=== PATIENT | male | born 1995 | race Caucasian/White ===

== ENCOUNTER 2019-12-21 08:22 | Day surgery (SDC) | payer BC ==
[~2019-12-21] VITALS: Ht 165.1 cm; Wt 58.5 kg
[~2019-12-21 08:22] MED LIST: CLONIDINE HCL0.1 MG PO; LEXAPRO20 MG PO; PRILOSEC OTC20 MG PO
[2019-12-21] MEDS ORDERED: ACETAMINOPHEN325 M1 PO (08:41)
--- NOTE | 2019-12-21 10:02 | NUR ---
12/21/19 1002 Meg Arora 0957 PATIENT ARRIVES TO PACU SLEEPING. DOES NOT OPEN EYES WITH VERBAL STIMULI. RESP EVEN AND UNLABORED, NC AT 3L. 1000 PATIENT SLEEPING, DOES NOT OPEN EYES WITH VERBAL STIMULI. IS MOVING ARMS AND ITCHING NOSE. RESP EVEN AND UNLABORED, NC CONTINUED AT 3 LITERS.
--- NOTE | 2019-12-22 07:58 | OR ---
[facility] [address] [place], [place] [address] Signed DATE OF OPERATION: 12/21/2019 SURGEON: Elizabeth Martins MD PREOPERATIVE DIAGNOSES: 1. Chronic periumbilical abdominal pain. 2. Esophageal dysphagia. 3. Diarrhea. 4. Anorexia. POSTOPERATIVE DIAGNOSES: 1. Mild diffuse gastroduodenitis. 2. Possible small pyloric bulb ulcer. 3. A onqcc-ce-ialmeofg sized hiatal hernia. 4. Retained food in the antrum and fundus of stomach concerning for gastroparesis. 5. Possible gastric outlet obstruction (36-Amharic). ESTIMATED BLOOD LOSS: None. PROCEDURE: Esophagogastroduodenoscopy with CLOtest and biopsies of the pyloric bulb and antrum. ESTIMATED BLOOD LOSS: None. 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 He has had to have reconstruction of his face including the TMJ on the left. He is able to open his mouth for the bite block, but not much further. He also had to have his heart operated on when he was younger. He said sustained activities in gym class used to bother him some, but not shorter activities. 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 However, he feels that his stomach issues have worsened, so he is currently unemployed. I actually saw him five years ago with similar complaints. He seems to have a very deep periumbilical sensation of pain. He said it is often at night. It often after meals. But not always. He can happen during bowel movements. He had been working with his primary care provider. The ultrasound showed a very contracted somewhat cystic appearing gallbladder. It was difficult to follow the gallbladder over to the common bile duct; however, the common bile duct itself was 2.6 Electronically Signed By: ELIZABETH MARTINS MD 12/22/19 0758 PATIENT NAME: KLAUS TRUJILLO OPERATIVE REPORT DATE OF : [birth year] REPORT #: [id number] PHYSICIAN: ELIZABETH MARTINS MD PCP: NICOLAS REYEZ MD REPORT IS CONFIDENTIAL AND NOT TO BE RELEASED WITHOUT AUTHORIZATION [facility] [address] [place] [address] Signed mm in diameter. Therefore, a followup CT scan was performed and he appears to have a very contracted gallbladder. He then underwent a HIDA scan and again the most likely has a very contracted gallbladder. However, the gallbladder ejection fraction was good at 83%. Injection of the CCK seemed to reproduce his symptoms. He presents today for his upper endoscopy. In the office, we reviewed upper endoscopy in detail along with its risks including, but not limited to gas bloating, crampy abdominal pain, bleeding, perforation requiring surgery, and missed diagnosis. He understands the need for IV conscious sedation. He has done well with Versed and fentanyl in the past. He expressed understanding and wished to proceed. DESCRIPTION OF PROCEDURE: Klaus was taken into our endoscopy suite and placed in the supine semi-recumbent position. He was given preoperative Ancef, which made him nauseated. Consequently, we gave him 8 mg of Zofran IV. After that, he seemed to be fine. His posterior oropharynx was anesthetized with lidocaine spray. A bite block was utilized for the case. He is able to open his mouth wide enough to get the bite block and it does not appear he can open it much further. We gave him 100 mg of Versed and 100 mcg fentanyl, 7 mg of Versed. Even then he was a bit awaken uncooperative during the test. Nevertheless, we were able to pass the scope down into the esophagus and into the stomach. He had food in the fundus and in the antrum of the stomach. It raises a concern for gastroparesis. It took a few minutes to find the opening from the antrum into the pylorus. Adult gastroscope just fit through there with a little bit of tension, and I suspect he has a small amount of gastric outlet obstruction. In the duodenal bulb, he had a little irritation and at one point it appeared that he might have just a tiny ulcer. The scope went out into the duodenum proper and it was unremarkable. The scope was then withdrawn back and we took a biopsy of the pyloric bulb as well as the antrum for pathologic review. We took an additional biopsy of the antrum for CLOtest. Upon retroflexion of scope, we could see during his respiratory cycles and he has a ygysn-re-bcxqqzhn sized hiatal hernia. The scope was withdrawn up to the area of the GE junction, which was compliant without stricture. There was no Renner's mucosa. No distal esophagitis. The middle and upper esophagus were unremarkable. After this, the gas been suctioned out and the gastroscope removed. Klaus tolerated the procedure quite well. RECOMMENDATIONS: I will see Klaus back in my office in 7 to 14 days to review his results. His last echocardiogram was in 2011. We have been unable to print that currently. Also, he has limited range of motion of his mandible given reconstruction of his left face. In the end, he may need his gallbladder out; however, he probably should at least have a solid phase gastric emptying scan to evaluate his stomach, and possibly simple upper GI small-bowel follow-through as well. Electronically Signed By: ELIZABETH MARTINS MD 12/22/19 0758 PATIENT NAME: KLAUS TRUJILLO OPERATIVE REPORT DATE OF : [birth year] REPORT #: [id number] PHYSICIAN: ELIZABETH MARTINS MD PCP: NICOLAS REYEZ MD REPORT IS CONFIDENTIAL AND NOT TO BE RELEASED WITHOUT AUTHORIZATION [address] [place] [address], [place] [address] Signed Elizabeth Martins MD ALB/MODL /[id number] cc: DO Nicolas Randall MD Andrew L Bower, MD Copies: KENIA FRAZIER RUSSELL BARR MD BOWER, ANDREW L MD ~ Electronically Signed By: ELIZABETH MARTINS MD 12/22/19 0758 PATIENT NAME: KLAUS TRUJILLO OPERATIVE REPORT DATE OF : [birth year] REPORT #: [id number] PHYSICIAN: ELIZABETH MARTINS MD PCP: NICOLAS REYEZ MD REPORT IS CONFIDENTIAL AND NOT TO BE RELEASED WITHOUT AUTHORIZATION
--- NOTE | 2019-12-25 16:51 | PATH ---
[facility] [address] [place], [place] [address] Signed SPECIMEN(S): A DUODENUM BULB SPECIMEN(S): B ANTRUM/PYLORUS SPECIMEN SOURCE: A. DUODENUM BULB B. ANTRUM/PYLORUS CLINICAL HISTORY: Abdominal pain, weight loss. EGD. MICROSCOPIC DESCRIPTION: Histologic sections of all submitted blocks are examined by light microscopy. These findings, together with the gross examination, support the pathologic diagnosis. FINAL PATHOLOGIC DIAGNOSIS: A. Duodenum, bulb, biopsy: - Duodenal mucosa with reactive changes and Prieto's gland hyperplasia, suggestive of peptic duodenitis. - Negative for Helicobacter organisms. - Negative for dysplasia or malignancy. B. Stomach, antrum/pylorus, biopsy: - Antral mucosa with reactive gastropathy. - Negative for Helicobacter organisms. - Negative for dysplasia or malignancy. COMMENT: Immunohistochemical stains for H. pylori (with appropriately staining controls) were performed on both specimens A and B and are negative for Helicobacter organisms. NAL:cml:C2NR GROSS DESCRIPTION: Two specimens are received in two containers, labeled "KA." A. The specimen, labeled "KA, duodenum bulb biopsy," is received in formalin and consists of one rubio soft tissue fragment that measures 0.2 cm in greatest dimension. The specimen is entirely submitted in cassette (A1). B. The specimen, labeled "KA, antrum biopsy," is received in formalin and consists of one rubio soft tissue fragment that measures 0.2 cm in greatest dimension. The specimen is entirely submitted in cassette (B1). PATIENT NAME: KLAUS TRUJILLO PATHOLOGY DATE OF : [birth year] REPORT #: [id number] PHYSICIAN: ROSEANNE SHERWOOD PCP: NICOLAS REYEZ MD REPORT IS CONFIDENTIAL AND NOT TO BE RELEASED WITHOUT AUTHORIZATION [facility] [address] [place], [place] [address] Signed JS (under the direct supervision of a pathologist) The Gross Description was prepared using a voice recognition system. The report was reviewed for accuracy; however, sound-alike word errors, addition and/or deletions may occur. If there is any question about this report, please contact Client Services. ADDITIONAL NOTES: Immunohistochemical and/or in situ hybridization studies were performed on this case with the appropriate positive controls that react as expected. This test was developed and its performance characteristics determined by [facility]. It has not been cleared or approved by the U.S. Food and Drug Administration. The FDA has determined that such clearance or approval is not necessary. This test is used for clinical purposes. It should not be regarded as investigational or for research. [facility] is certified under the Clinical Laboratory Improvement Amendments of 1988 (CLIA) as qualified to perform high complexity clinical laboratory testing. PERFORMING LABORATORY: The technical component was performed by [facility], [address] [place] [id number] (Benefits Sales Consultant: Aziza Mai MD; CLIA# [id number]). [facility], [address] [address] (CLIA# [id number]). Diagnostician: Dilma Sky MD Pathologist Electronically Signed 12/25/2019 Copies: ~ PATIENT NAME: KLAUS TRUJILLO PATHOLOGY DATE OF : [birth year] REPORT #: [id number] PHYSICIAN: ROSEANNE PATHOLOGY PCP: NICOLAS REYEZ MD REPORT IS CONFIDENTIAL AND NOT TO BE RELEASED WITHOUT AUTHORIZATION
== END 2019-12-21 10:55 | disposition home or self-care (01) ==
LOC: OPS 08:22 → DS 08:22 → OPS 09:45
PROVIDERS: Colon & Rectal Surgery
PROC: 0DB78ZX Excision of Stomach, Pylorus, Via Natural or Artificial Opening Endoscopic, Diagnostic (ICD-10-PCS; 2019-12-21)
PROC: 0DB98ZX Excision of Duodenum, Via Natural or Artificial Opening Endoscopic, Diagnostic (ICD-10-PCS; principal; 2019-12-21 09:45)
DX: K31.9 Disease of stomach and duodenum, unspecified (principal); K44.9 Diaphragmatic hernia without obstruction or gangrene; G47.00 Insomnia, unspecified; F32.9 Major depressive disorder, single episode, unspecified; F41.9 Anxiety disorder, unspecified; Z79.899 Other long term (current) drug therapy; Z87.891 Personal history of nicotine dependence; Z88.8 Allergy status to other drugs, medicaments and biological substances
CPT/HCPCS: 86677; 99153; G0500; J0690; J2250; J2405; J3010; J7121

== ENCOUNTER 2020-01-25 08:14 | Emergency (ER) | payer BC ==
[~2020-01-25] VITALS: Ht 165.1 cm; Wt 58.5 kg
--- OUTSIDE RECORDS SUMMARY | ~2020-01-25 | XMS | Clinical Summary ---
Demographics + + + | Address | [address] | | | [place] [address] | + + + | Home Phone | | + + + | Preferred Language | Unknown | + + + | Marital Status | Single | + + + | Jainism Affiliation | Unknown | + + + | Race | White | + + + | Ethnic Group | Not or | + + + Author + + + | Author | NON REVENUE LOCATIONS | + + + | Organization | NON REVENUE LOCATIONS | + + + | Address | Unknown | + + + | Phone | Unavailable | + + + Support + + + + + | Name | Relationship | Address | Phone | + + + + + | Shreya Vega | ECON | [address] | | | | | [place] | | | | | [address] | | + + + + + Care Team Providers + +------+ + | Care Bulk Tank Car Unloader Name | Role | Phone | + +------+ + PCP | Unavailable | + +------+ + Source Comments OLEG is fully live on both [facility] Ambulatory and [facility] InPatient.[facility] Allergies No Known Allergies Medications Not on file Active Problems Not on file Social History + +-------+ +--------+------+ | Tobacco Use | Types | Packs/Day | Years | Date | | | | | Used | | + +-------+ +--------+------+ | Never Assessed | | | | | + +-------+ +--------+------+ + + + | Sex Assigned at | Date Recorded | | | | + + + | Not on file | | + + + Last Filed Vital Signs Not on file Plan of Treatment + + +-------+ + | Health Maintenance | Due Date | Last | Comments | | | | Done | | + + +-------+ + | Influenza (Flu) | | | | | vaccination (#1) | 0 | | | + + +-------+ + | Pneumococcal | Aged Out | | No longer eligible based on patient's age | | vaccination | | | to complete this topic | + + +-------+ + Results Not on filefrom Last 3 Months Insurance + +--------+ +--------+ + +------+ | Payer | Benefi | Subscriber | Effect | Phone | Address | Type | | | t Plan | ID | luiz | | | | | | / | | Dates | | | | | | Group | | | | | | + +--------+ +--------+ + +------+ | [employer] | MODA | [id number] | | [phone] | [address] | PPO | | | [employer] | | [id number] | [id number] | | | | [place] | | esent | | [place], | | | | [place] | | | | [place] [address] | | + +--------+ +--------+ + +------+ + +--------+ +--------+ + + | Guarantor Name | Accoun | Relation to | Date | Phone | Billing Address | | | t Type | Patient | of | | | | | | | | | | + +--------+ +--------+ + + | SHREYA VEGA | Person | Parent | [birth year] | [address] | | | al/Hieu | | 1963 | [phone] | [place] [address] | | | vinay | | | 9 (Home) | | + +--------+ +--------+ + +"
--- OUTSIDE RECORDS SUMMARY | ~2020-01-25 | XMS | Encounter Summary ---
Demographics + + + | Address | [address] | | | [place] [address] | + + + | Home Phone | | + + + | Preferred Language | Unknown | + + + | Marital Status | Single | + + + | Church Affiliation | Unknown | + + + | Race | White | + + + | Ethnic Group | Not or | + + + Author + + + | Author | [facility] | + + + | Organization | [facility] | + + + | Address | Unknown | + + + | Phone | Unavailable | + + + Support + + + + + | Name | Relationship | Address | Phone | + + + + + | Shreya Stewart | ECON | [address] | | | | | [place] | | | | | [address] | | + + + + + Care Team Providers + +------+ + | Care Production Line Welder Name | Role | Phone | + +------+ + | Marie Khan MD | PCP | | + +------+ + Reason for Visit Diagnostic Testing (Routine) +--------+--------+ + + + + | Status | Reason | Specialty | Diagnoses / | Referred By | Referred To | | | | | Procedures | Contact | Contact | +--------+--------+ + + + + | Closed | | Radiology | Diagnoses | [place], | [facility] | | | | | Ventricular | Booker Hannah DO | [address] | | | | | septal | [address] | | | | | defect | [place] | [address] | | | | | Procedures | [address] | Research | | | | | MR CARDIAC | [place], [place] | [place] | | | | | COMPREHENSIV | [address] | [place], [place] | | | | | [address] | Phone: | [phone] | | | | | CONTRAST | [phone] | Phone: | | | | | | Fax: | [phone] | | | | | | [phone] | Fax: | | | | | | | [phone] | +--------+--------+ + + + + Encounter Details +--------+ + + + + | Date | Type | Department | Care Team | Description | +--------+ + + + + | 09/02/ | Hospital | Diagnostic Imaging | | | | 2011 | Encounter | Services at [facility] | | | | | | [address] | | | | | | Trish Rojas | | | | | | [facility] | | | | | | [place], [place] | | | | | | [address] | | | | | | [phone] | | | +--------+ + + + + Social History + +-------+ +--------+------+ | Tobacco [...] on file | | + + + documented as of this encounter Procedure Renaldo Winslow - 03/18/2012 1:55 PM PSTAssociated Order(s): ORDERS OTHERElectronically sig kiko by Faculty Other at 03/18/2012 1:55 PM PSTdocumented in this encounter Miscellaneous Notes Scan - Luca Faculty - 09/29/2011 11:35 AM PDTElectronically signed by Faculty Other at 11:35 AM PDTScan - Luca Faculty - 09/19/2011 10:54 AM PDT valuation - Mariah Madrid MD - 09/03/2011 12:16 PM PDTAnthony has a 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 The prostheti c component was not brought to [facility] today. A titanium (non-ferromagnetic) appliance is seen on the left side of the patient's head, used as a clip type attachment for the prosthesis. The titanium component is not removable and per the website for the sales representative facility services of the vis tafix implant and their online recommendation is that any magnetic or mangabutment or magnac ap components be removed prior to MR. This patient's prosthesis does not contain these comp onents so we will proceed with the CMR. [email or web address] I spoke with Keesha at Dr. Heladio Son's office regarding the confirming presence of only t he titanium component as well. documented in this en counter Plan of Treatment Not on filedocumented as of this encounter Procedures + +--------+ + + + | Procedure Name | Priori | Date/Time | Associated Diagnosis | Comments | | | ty | | | | + +--------+ + + + | ORDERS OTHER | | 09/03/2011 | | Results for this | | | | 12:00 AM | | procedure are in the | | | | PDT | | results section. | + +--------+ + + + documented in this encounter Results ORDERS OTHER (09/03/2011 12:00 AM PDT) + + + | Narrative | Performed At | + + + | | | | | | + + + + + | Procedure Note | + + | Renaldo Segovia - 03/18/2012 1:55 PM PST | + + documented in this encounter Visit Diagnoses + + | Diagnosis | + + | Ventricular septal defect | + + documented in this encounter"
--- OUTSIDE RECORDS SUMMARY | ~2020-01-25 | XMS | Encounter Summary ---
Demographics + + + | Address | [address] | | | [place] [address] | + + + | Home Phone | | + + + | Preferred Language | Unknown | + + + | Marital Status | Single | + + + | Synagogue Affiliation | Unknown | + + + | Race | White | + + + | Ethnic Group | Not or | + + + Author + + + | Author | [facility] | + + + | Organization | [facility] | + + + | Address | Unknown | + + + | Phone | Unavailable | + + + Support + + + + + | Name | Relationship | Address | Phone | + + + + + | Shreya Stewart | ECON | [address] | | | | | [place] | | | | | [address] | | + + + + + Care Team Providers + +------+ + | Care Explosive Ordnance Disposal Specialist Name | Role | Phone | + +------+ + | Marie Khan MD | PCP | | + +------+ + Reason for Referral Diagnostic Testing (Routine) +--------+--------+ + + + [...] | | | | MR CARDIAC | [place], [place] | [place] | | | | | COMPREHENSIV | [id number] | [place], [place] | | | | | E W/O | Phone: | [phone] | | | | | CONTRAST | [phone] | Phone: | | | | | | Fax: | [phone] | | | | | | [phone] | Fax: | | | | | | | [phone] | +--------+--------+ + + + + Encounter Details +--------+ + + + + | Date | Type | Department | Care Team | Description | +--------+ + + + + | 08/16/ | Outside | Diagnostic Imaging | Booker Troncoso DO | | | 2011 | Referral | Services at [facility] | [address] | | | | Order | [address] | [facility] [place] | | | | | Trish Rojas | [address] | | | | | [facility] | [phone] | | | | | [place], [place] | | | | | | [address] | | | | | | [phone] | | | +--------+ + + + [...] + + documented as of this encounter Plan of Treatment Not on filedocumented as of this encounter Procedures + +--------+ + + + | Procedure Name | Priori | Date/Time | Associated Diagnosis | Comments | | | ty | | | | + +--------+ + + + | MR CARDIAC COMPRE + | Routin | 09/03/2011 | | Results for this | | VELOCITY FLOW W/O | e | 2:22 PM | | procedure are in the | | CONTRAST | | PDT | | results section. | + +--------+ + + + | MRA CHEST W CONTRAST | Routin | 09/03/2011 | | Results for this | | | e | 2:22 PM | | procedure are in the | | | | PDT | | results section. 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 Small | | | | | | membranous VSD.Right | | | | | | aortic arch with | | | | | | suspected vascular ring. | | | | | | WEIGHT: 51.256 | | | | | | kgHEIGHT: 134.62 cmBSA: | | | | | | 1.34HEART RATE: 79 bpm | | | | | | CARDIAC | | | | | | MORPHOLOGY:Normal | | | | | | atrioventricular and | | | | | | ventriculoarterial | | | | | | anatomicalrelationships. | | | | | | The cardiac apex, | | | | | | gastric lumen, and | | | | | | spleen are onthe left | | | | | | and the liver is on the | | | | | | right. MR | | | | | | ANGIOGRAPHY:The aortic | | | | | | arch is on the right. 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 The left | | | | | | subclavian arteryfollows | | | | | | a retro-esophageal | | | | | | course and is in close | | | | | | proximity to theproximal | | | | | | left common carotid | | | | | | artery (7 mm) in the | | | | | | superiormediastinum. 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 Coronary | | | | | | artery origins are | | | | | | normal. LV:Normal LV | | | | | | size and systolic | | | | | | function.Normal LV wall | | | | | | motion.A subaortic | | | | | | membrane arises from the | | | | | | septum 20 mm below the | | | | | | aorticvalve, resulting | | | | | | in blood flow | | | | | | disturbance. RV:Normal | | | | | | RV size and systolic | | | | | | function. Moderate RV | | | | | | hypertrophy isseen.A | | | | | | flow jet, indicating | | | | | | accelerated flow | | | | | | velocity due to | | | | | | narrowing ofthe RVOT is | | | | | | seen 25 mm below the | | | | | | pulmonic valve. Cine | | | | | | sequences, with | | | | | | saturation bands applied | | | | | | to accentuate | | | | | | potentialflow findings | | | | | | of a VSD were performed. | | | | | | A VSD is not | | | | | | visualized andthere is | | | | | | equal stroke volume in | | | | | | the right and left | | | | | | ventricles.Echocardiogra | | | | | | phy is sensitive for | | | | | | detection of small VSDs. | | | | | | ATRIA:The right atrial | | | | | | appendage is markedly | | | | | | enlarged.Normal left | | | | | | atrial size.The atrial | | | | | | septum is intact. AORTA | | | | | | & PAs:Normal; no branch | | | | | | PA stenosis.VEINS:There | | | | | | are bilateral SVCs, | | | | | | without a bridging vein. | | | | | | The IVC and PVsare | | | | | | normal. CARDIAC | | | | | | FUNCTION:LVEDV: 90 mL | | | | | | 67 | | | | | | mL/u2KQICM: 34 mL | | | | | | 25 mL/m2LVSV: 56 | | | | | | mL 42 | | | | | | mL/m2LV mass: 70 g | | | | | | 52 g/m2LVEF: | | | | | | 62% RVEDV: 96 mL | | | | | | 72 mL/w9YNNRD: | | | | | | 43 mL 32 | | | | | | mL/m2RVSV: 53 mL | | | | | | 40mL/m2RVEF: | | | | | | 56% VALVES:The aortic, | | | | | | pulmonic, mitral, and | | | | | | tricuspid valves are | | | | | | competent.A subaortic | | | | | | membrane is visualized | | | | | | 20 mm below the aortic | | | | | | valve.Subpulmonic | | | | | | stenosis is seen 30 mm | | | | | | below the pulmonic | | | | | | valve. | | | | | | PERICARDIUM:Normal; no | | | | | | pericardial effusion. Q | | | | | | FLOW:AORTIC BLOOD FLOW | | | | | | (mL): 47PULMONIC BLOOD | | | | | | FLOW (mL): 52Qp/Qs | | | | | | ratio: 1.1 THORAX & | | | | | | UPPER | | | | | | ABDOMEN:Mediastinal | | | | | | structures and upper | | | | | | abdominal viscera are | | | | | | normal. 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 | | | | | | Attending Radiologists: | | | | | | Mariah Madrid, | | | | | | EjAuthor: Mariah Ordonez | | | | | | Ej Madrid I have | | | | | | personally viewed this | | | | | | procedure/exam, reviewed | | | | | | this report,and made | | | | | | changes to it where | | | | | | appropriate. | | | | | | Final/Electronically | | | | | | signed / Mariah Ordonez | | | | | | Julius 09/04/2011 16:22 | | | | | | PM Result modified / | | | | | | Mariah Madrid | | | | | | 09/03/2011 18:27 PM | | | | | | Preliminary / | | | | | | Mariah Madrid | | | | | | 09/03/2011 17:22 PM | | | | + + + + + + + + | Specimen | + + | | + + + +---------+ + + | Performing | Address | City/State/Zipcode | Phone Number | | Organization | | | | + +---------+ + + | [facility] OF | | | | | RADIOLOGY | | | | + +---------+ + + MR CARDIAC COMPRE + VELOCITY FLOW W/O CONTRAST (09/03/2011 2:22 PM PDT) + + + + + + | Component | Value | Ref Range | Performed | Pathologist | | | | | At | Signature | + + + + + + | MR CARDIAC | CARDIAC MR COMPREHENSIVE | | | | | COMPRE + | - MORPHOLOGY & | | | | | VELOCITY | FUNCTIONQ FLOW OF THE | | | | | FLOW W/O | AORTA & PULMONARY | | | | | CONTRAST | [id number] MR ANGIOGRAPHY | | | | | | - IV Gd CLINICAL | | | | | | DATA:RVOT and LVOT | | | | | | obstruction, double | | | | | | chamber RV. Small | | | | | | membranous VSD.Right | | | | | | aortic arch with | | | | | | suspected vascular ring. | | | | | | WEIGHT: 51.256 | | | | | | kgHEIGHT: 134.62 cmBSA: | | | | | | 1.34HEART RATE: 79 bpm | | | | | | CARDIAC | | | | | | MORPHOLOGY:Normal | | | | | | atrioventricular and | | | | | | ventriculoarterial | | | | | | anatomicalrelationships. | | | | | | The cardiac apex, | | | | | | gastric lumen, and | | | | | | spleen are onthe left | | | | | | and the liver is on the | | | | | | right. MR | | | | | | ANGIOGRAPHY:The aortic | | | | | | arch is on the right. 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 The left | | | | | | subclavian arteryfollows | | | | | | a retro-esophageal | | | | | | course and is in close | | | | | | proximity to theproximal | | | | | | left common carotid | | | | | | artery (7 mm) in the | | | | | | superiormediastinum. 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 Coronary | | | | | | artery origins are | | | | | | normal. LV:Normal LV | | | | | | size and systolic | | | | | | function.Normal LV wall | | | | | | motion.A subaortic | | | | | | membrane arises from the | | | | | | septum 20 mm below the | | | | | | aorticvalve, resulting | | | | | | in blood flow | | | | | | disturbance. RV:Normal | | | | | | RV size and systolic | | | | | | function. Moderate RV | | | | | | hypertrophy isseen.A | | | | | | flow jet, indicating | | | | | | accelerated flow | | | | | | velocity due to | | | | | | narrowing ofthe RVOT is | | | | | | seen 25 mm below the | | | | | | pulmonic valve. Cine | | | | | | sequences, with | | | | | | saturation bands applied | | | | | | to accentuate | | | | | | potentialflow findings | | | | | | of a VSD were performed. | | | | | | A VSD is not | | | | | | visualized andthere is | | | | | | equal stroke volume in | | | | | | the right and left | | | | | | ventricles.Echocardiogra | | | | | | phy is sensitive for | | | | | | detection of small VSDs. | | | | | | ATRIA:The right atrial | | | | | | appendage is markedly | | | | | | enlarged.Normal left | | | | | | atrial size.The atrial | | | | | | septum is intact. AORTA | | | | | | & PAs:Normal; no branch | | | | | | PA stenosis.VEINS:There | | | | | | are bilateral SVCs, | | | | | | without a bridging vein. | | | | | | The IVC and PVsare | | | | | | normal. CARDIAC | | | | | | FUNCTION:LVEDV: 90 mL | | | | | | 67 | | | | | | mL/s5HFUGC: 34 mL | | | | | | 25 mL/m2LVSV: 56 | | | | | | mL 42 | | | | | | mL/m2LV mass: 70 g | | | | | | 52 g/m2LVEF: | | | | | | 62% RVEDV: 96 mL | | | | | | 72 mL/c8FNYRM: | | | | | | 43 mL 32 | | | | | | mL/m2RVSV: 53 mL | | | | | | 40mL/m2RVEF: | | | | | | 56% VALVES:The aortic, | | | | | | pulmonic, mitral, and | | | | | | tricuspid valves are | | | | | | competent.A subaortic | | | | | | membrane is visualized | | | | | | 20 mm below the aortic | | | | | | valve.Subpulmonic | | | | | | stenosis is seen 30 mm | | | | | | below the pulmonic | | | | | | valve. | | | | | | PERICARDIUM:Normal; no | | | | | | pericardial effusion. Q | | | | | | FLOW:AORTIC BLOOD FLOW | | | | | | (mL): 47PULMONIC BLOOD | | | | | | FLOW (mL): 52Qp/Qs | | | | | | ratio: 1.1 THORAX & | | | | | | UPPER | | | | | | ABDOMEN:Mediastinal | | | | | | structures and upper | | | | | | abdominal viscera are | | | | | | normal. 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 | | | | | | Attending Radiologists: | | | | | | Mariah Madrid, | | | | | | EjAuthor: Mariah Ordonez | | | | | | Ej Madrid I have | | | | | | personally viewed this | | | | | | procedure/exam, reviewed | | | | | | this report,and made | | | | | | changes to it where | | | | | | appropriate. | | | | | | Final/Electronically | | | | | | signed / Mariah Ordonez | | | | | | Julius 09/04/2011 16:22 | | | | | | PM Result modified / | | | | | | Mariah Madrid | | | | | | 09/03/2011 18:27 PM | | | | | | Preliminary / | | | | | | Mariah Madrid | | | | | | 09/03/2011 17:22 PM | | | | + + + + + + + + | Specimen | + + | | + + + +---------+ + + | Performing | Address | City/State/Zipcode | Phone Number | | Organization | | | | + +---------+ + + | [facility] OF | | | | | RADIOLOGY | | | | + +---------+ + + documented in this encounter Visit Diagnoses + + | Diagnosis | + + | Ventricular septal defect | + + documented in this encounter"
[~2020-01-25 08:14] MED LIST changes: +ACETAMINOPHEN325 M1 PO
[2020-01-25] MEDS ORDERED: AMOXICILLIN500 MG PO (10:02)
== END 2020-01-25 10:19 | disposition home or self-care (01) ==
LOC: ED 08:14
DX: R10.84 Generalized abdominal pain (principal); K02.9 Dental caries, unspecified; T40.4X5A Adverse effect of other synthetic narcotics, initial encounter; Z87.891 Personal history of nicotine dependence; Z88.1 Allergy status to other antibiotic agents; Z79.899 Other long term (current) drug therapy
CPT/HCPCS: 80053; 83690; 85025; 96361; 96374; 99284-25; J2405; J7030

== ENCOUNTER 2024-01-02 22:47 | Emergency (ER) | payer BC ==
[~2024-01-02] VITALS: Ht 165.1 cm; Wt 84.4 kg
[~2024-01-02 22:47] MED LIST changes: +AMOXICILLIN500 MG PO
[2024-01-02] MEDS ORDERED: SODIUM CHLORIDE 0.9% 1,000 ML IV ONE (23:15)
[2024-01-02] MEDS ORDERED: ondansetron HCL 4 MG/2 ML VIAL IV ONE (23:15)
[2024-01-02] MEDS ORDERED: MORPHINE SULFATE 4 MG/ML VIAL IV ONE (23:30)
[2024-01-02 23:56] LABS: ALBUMIN 4.4 g/dL (3.4-5.0); ALBUMIN/GLOBULIN RATIO 1.38 (1.1-2.4); ANION GAP 15.4 (7-21); BILIRUBIN, TOTAL 0.9 ng/dL (0.2-1.0); BUN/CREATININE RATIO 9.65 (6.0-28.6); CALCIUM 9.2 mg/dL (8.5-10.1); CREATININE, SERUM 1.45 mg/dL (0.70-1.30); POTASSIUM 3.4 mmol/L (3.5-5.1); PROTEIN, TOTAL 7.6 g/dL (6.4-8.2)
[2024-01-02 23:58] LABS: BASOPHILS 0.3 % (0-2); EOSINOPHILS 0.9 % (0-6); HEMATOCRIT 48.5 % (35.0-50.0); HEMOGLOBIN 16.5 g/dL (12.0-18.0); LYMPHOCYTES 12.6 % (24-44); MCH 29.7 (27-36); MCV 87.3 fl (81-99); MONOCYTES 7.3 % (0-12); NEUTROPHILS 78.9 % (39-80); PLATELET COUNT 313 K/uL (140-440); RBC 5.55 M/ul (4.3-5.7)
[2024-01-03] MEDS ORDERED: HYDROmorphone HCL 1 MG/ML SYR IV PRN (01:00)
[2024-01-03] MEDS ORDERED: droPERidol 5 MG/2 ML VIAL IV ONE (01:00)
[2024-01-03] MEDS ORDERED: KETOROLAC TROMETHAMINE 15 MG/ML VIAL IV ONE (01:00)
[2024-01-03] MEDS ORDERED: LACTATED RINGER'S 1,000 ML IV ONE (01:30)
[2024-01-03 03:00] LABS: BILIRUBIN, URINE NEGATIVE (negative); BLOOD/HGB, URINE LARGE (Negative); KETONE, URINE SMALL (Negative); LEUK ESTERASE, URINE NEGATIVE (negative); NITRITE, URINE NEGATIVE (negative); PH, URINE 5.5 (5-7)
[2024-01-03] MEDS ORDERED: FLOMAX0.4 MG PO (03:03)
[2024-01-03] MEDS ORDERED: ONDANSETRON ODT8 MG PO (03:03)
[2024-01-03] MEDS ORDERED: PERCOCET 5-3251 EACH PO (03:03)
[2024-01-03] MEDS ORDERED: CIPRO500 MG PO (03:03)
[2024-01-03] MEDS ORDERED: ONDANSETRON 4 MG HOME.PACK SL ONE (03:15)
[2024-01-03] MEDS ORDERED: OXYCODONE/ACETAMINOPHEN 1 TAB HOME.PACK PO ONE (03:15)
[2024-01-03] MEDS ORDERED: TAMSULOSIN HCL 0.4 MG CAP PO ONE (03:15)
[2024-01-03] MEDS ORDERED: CIPROFLOXACIN 500 MG TAB PO ONE (03:15)
[2024-01-03 03:20] LABS: BACTERIA, URINE RARE /hpf (negative); CASTS, URINE NONE SEEN \\lpf; COLLECTION TYPE, URINE CLEAN CATCH; CRYSTALS, URINE CALCIUM OXALATE 2+ (0-1+); EPITHELIAL CELLS, URINE NONE SEEN /lpf (0-1+); REFLEX CULTURE, URINE No (No)
[2024-01-03 03:29] VITALS: BP 128/95
== END 2024-01-03 03:30 | disposition home or self-care (01) ==
LOC: ED 22:47
PROVIDERS: Family Medicine
DX: N13.2 Hydronephrosis with renal and ureteral calculous obstruction (principal); Z88.8 Allergy status to other drugs, medicaments and biological substances; Z79.899 Other long term (current) drug therapy
CPT/HCPCS: 36415; 51798; 74176; 80053; 81001; 83690; 85025; 96361; 96374; 96375; 99284-25; A9270; J1170; J1790; J1885; J2270; J2405; J7030; J7121

== ENCOUNTER 2024-01-08 01:43 | Emergency (ER) | payer BC ==
[~2024-01-08] VITALS: Ht 165.1 cm; Wt 84.5 kg
[~2024-01-08 01:43] MED LIST changes: +CIPRO500 MG PO; +FLOMAX0.4 MG PO; +ONDANSETRON ODT8 MG PO; +PERCOCET 5-3251 EACH PO
--- OUTSIDE RECORDS SUMMARY | 2024-01-08 01:51 | XMS ---
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 Rene has no Care Guidelines for this patient. [facility]12 MO.) [facility] NOTE: Visits indicate total known visits. ED/UCC VISIT TRACKING (12 MO.) [facility] [place] [facility] COMPLAINT: - KIDNEY STONE/UNABLE TO URINATE 01/02/2024 22:[address] [facility] [place] TYPE: Emergency COMPLAINT: - EXTREMITY PAIN DIAGNOSES: - Allergy status to other drugs, medicaments and biological substances - Hydronephrosis with renal and ureteral calculous obstruction - Other correction (current) drug therapy INPATIENT VISIT TRACKING (12 MO.) No inpatient visits to display in this time frame [email or web address]
[2024-01-08 02:11] LABS: BASOPHILS 0.4 % (0-2); EOSINOPHILS 1.3 % (0-6); HEMOGLOBIN 15.6 g/dL (12.0-18.0); LYMPHOCYTES 10.7 % (24-44); MCH 30.1 (27-36); MCHC 34.7 g/dl (30-36); MCV 86.7 fl (81-99); MONOCYTES 7.6 % (0-12); PLATELET COUNT 286 K/uL (140-440); RBC 5.19 M/ul (4.3-5.7); RDW 13.1 (10.5-15.0)
[2024-01-08] MEDS ORDERED: FAMOTIDINE 20 MG/ 2 ML VIAL IV ONE (02:15)
[2024-01-08] MEDS ORDERED: ondansetron HCL 4 MG/2 ML VIAL IV ONE (02:15)
[2024-01-08] MEDS ORDERED: LACTATED RINGER'S 1,000 ML IV ONE (02:15)
[2024-01-08] MEDS ORDERED: TAMSULOSIN HCL 0.4 MG CAP PO ONE (02:15)
[2024-01-08] MEDS ORDERED: fentaNYL citrate 100 MCG/2 ML VIAL IV ONE (02:15)
[2024-01-08 02:21] LABS: ALBUMIN 4.3 g/dL (3.4-5.0); ALBUMIN/GLOBULIN RATIO 1.34 (1.1-2.4); ANION GAP 15.7 (7-21); BILIRUBIN, TOTAL 1.4 ng/dL (0.2-1.0); BUN/CREATININE RATIO 9.49 (6.0-28.6); CALCIUM 9.3 mg/dL (8.5-10.1); CREATININE, SERUM 1.58 mg/dL (0.70-1.30); POTASSIUM 3.7 mmol/L (3.5-5.1); PROTEIN, TOTAL 7.5 g/dL (6.4-8.2)
[2024-01-08] MEDS ORDERED: CEFTRIAXONE/SODIUM CHLORIDE 2 GM/100 ML PIGGYBACK IV ONE (03:15)
[2024-01-08 03:56] VITALS: BP 145/101
[2024-01-08 04:00] LABS: BILIRUBIN, URINE NEGATIVE (negative); BLOOD/HGB, URINE MODERATE (Negative); KETONE, URINE SMALL (Negative); LEUK ESTERASE, URINE NEGATIVE (negative); NITRITE, URINE NEGATIVE (negative); PH, URINE 5.5 (5-7)
[2024-01-08 04:19] LABS: BACTERIA, URINE RARE /hpf (negative); CASTS, URINE HYALINE 2+ \\lpf; CRYSTALS, URINE CALCIUM OXALATE 1+ (0-1+); EPITHELIAL CELLS, URINE NONE SEEN /lpf (0-1+)
[2024-01-08 04:20] LABS: COLLECTION TYPE, URINE CLEAN CATCH; REFLEX CULTURE, URINE No (No)
== END 2024-01-08 03:56 | disposition short-term general hospital (02) ==
LOC: ED 01:43
PROVIDERS: Internal Medicine
DX: N13.2 Hydronephrosis with renal and ureteral calculous obstruction (principal); E86.0 Dehydration; Z90.49 Acquired absence of other specified parts of digestive tract; Z88.8 Allergy status to other drugs, medicaments and biological substances; Z79.891 Long term (current) use of opiate analgesic; Z79.899 Other long term (current) drug therapy
CPT/HCPCS: 36415; 51798; 74176; 80053; 81001; 83690; 85025; 96361; 96365; 96375; 99285-25; J0696; J2405; J3010; J7121